=== PATIENT | female | born 1995 | race Caucasian/White ===

== ENCOUNTER 2022-03-30 08:19 | Emergency (ER) | payer OTHER, SELFPAY ==
[2022-03-30 08:18] VITALS: BP 112/78; PULSE 80; RESP 14; TEMP 36.4; O2SAT 97
--- NOTE | 2022-03-30 08:20 | ED.PSYCH ---
HPI - Psych General Chief Complaint: Psychiatric Symptoms Stated Complaint: SI Source: RN notes reviewed History of Present Illness HPI Narrative: Patient presents emergency room from home for suicidal ideation. She states she has been under some increased stress recently. She states that she was frustrated this morning and been texting with her mother texted her mother that she is going to kill herself. She states that she did send the text but she states that she had no intent to act on it she just texted out of frustration states that time she just laid down and then she had been awoken by the police to come to her house after her mother called the police she currently denies any homicidal or suicidal ideation she states she has 2 children at home and would not want to hurt her self but she wants to be there for her children she denies any recent illness has no other complaints at this time Related Data Allergies Allergy/AdvReac Type Severity Reaction Status Date / Time No Known Allergies Allergy Verified 03/30/22 08:24 Review of Systems Review of Systems: Gen.: Denies fevers or chills Eyes: Denies eye pain or visual change ENT: Denies congestion Respiratory: Denies shortness of breath or cough CV: Denies chest pain GI: Denies abdominal pain nausea, emesis or diarrhea Musculoskeletal: Denies back pain or muscle pain Neuro: Denies numbness, tingling, weakness or focal weakness Skin: Denies rash Psych: See HPI Except as documented, all other systems reviewed and negative [facility] Past Medical History Medical History (Updated 03/30/22 @ 11:10 by Aniket Lucia DO) Patient denies significant medical history Social History Social History (Updated 03/30/22 @ 08:22 by Aniket Lucia DO) Smoking status: Never smoker Substance use type: marijuana Exam Narrative: APPEARANCE: No acute distress, nontoxic, resting in bed EYES: EOMI HEENT: Normocephalic, atraumatic, OMM RESPIRATORY: No respiratory distress Clear to auscultation bilaterally with no rhonchi wheezing or rales. CARDIOVASCULAR: Regular rate and rhythm without murmurs rubs or gallops. ABDOMINAL: Soft, nontender, nondistended, no rebound or guarding MUSCULOSKELETAl: Moves all extremities. No clubbing, cyanosis or edema. NEURO: Awake and alert. Following commands, speech normal, no focal deficits SKIN:: Warm, dry. No rashes lesions or abrasions PSYCHIATRIC: Normal affect/mood, Psych: Denies suicidal or homicidal ideation Course Course Emergency Course: Patient evaluated by crisis collections director's continues any suicidal homicidal ideation. Safety plan is filled out Crisis evaluators feel patient may be discharged Patient reevaluated myself denies any suicidal homicidal ideation Discussed with patient results of workup and diagnosis. Discussed need for follow-up with primary care, proper use of medication, and reasons to return to the emergency department. Patient understands and agrees to current treatment plan Vital Signs Vital signs: Vital Signs Temperature 97.6 F 03/30/22 08:18 Pulse Rate 80 03/30/22 08:18 Respiratory Rate 14 03/30/22 08:18 Blood Pressure 112/78 03/30/22 08:18 Pulse Oximetry 97 03/30/22 08:18 Oxygen Delivery Room Air 03/30/22 08:18 Temperature 97.6 F 03/30/22 08:18 Pulse Rate 80 03/30/22 08:18 Respiratory Rate 14 03/30/22 08:18 Blood Pressure 112/78 03/30/22 08:18 Pulse Oximetry 97 03/30/22 08:18 Oxygen Delivery Room Air 03/30/22 08:18 MDM - Psych Lab Data Result diagrams: 03/30/22 08:31 03/30/22 08:30 Labs: Lab Results 03/30/22 03/30/22 03/30/22 Range/Units 08:30 08:30 08:30 WBC (4.5-10.0) K/mm3 RBC (4.2-5.4) M/mm3 Hgb (12.0-15.0) g/dL Hct (37.0-47.0) % MCV (80-100) fl MCH (26-34) pg MCHC (32-36) g/dl RDW (11.5-14.5) % Plt Count (150-375) k/mm3 MPV (7.4-10.4) fl Immature Gran % (Auto)
[2022-03-30 08:41] LABS: Basophils Percent Auto 0.3 % (0.2-1.2); Eosinophils Absolute Auto 0.2 K/mm3 (0-0.3); Eosinophils Percent Auto 1.3 % (0-4.4); Hemoglobin 13.9 g/dL (12.0-15.0); Immature Granulocyte Absolute 0.02 K/mm3 (0.00-0.031); Immature Granulocyte Percent A 0.2 % (0-0.5); Lymphocytes Absolute Auto 1.29 K/mm3 (0.9-3.2); Lymphocytes Percent Auto 11.3 % (18.3-44.2); Mean Corpuscular HGB Conc 33.1 g/dl (32-36); Mean Corpuscular Volume 90.5 fl (80-100); Mean Platelet Volume 8.9 fl (7.4-10.4); Monocytes Absolute Auto 0.6 K/mm3 (0.1-0.6); Monocytes Percent Auto 5.4 % (2.6-8.5); Neutrophils Absolute Auto 9.4 K/mm3 (1.3-6.7); Neutrophils Percent Auto 81.5 % (45.5-73.1); Platelet Count Result 294 k/mm3 (150-375); Red Blood Count 4.64 M/mm3 (4.2-5.4); Red Cell Distribution Width 13.2 % (11.5-14.5); White Blood Count 11.5 K/mm3 (4.5-10.0)
[2022-03-30 08:46] LABS: Appearance Urine Slightly Cloudy (Clear); Bilirubin Urine 1+ (Negative); Color Urine Yellow (Yellow); Glucose Urine UA Negative (Negative); Ketones Urine Negative (Negative); Leukocyte Esterase Ur 1+ LEU/UL (Negative); Nitrate Urine Negative (Negative); Protein Urine 1+ mg/dL (Negative); Specific Grav Ur >= 1.030 (1.001-1.035); Urobilinogen Urine 0.2 mg/dL (<2.0)
[2022-03-30 08:53] LABS: Alanine Aminotransferase 14 U/L (6-35); Albumin Level 4.7 g/dL (3.5-5.1); Alkaline Phosphatase 92 U/L (38-126); Anion Gap 12 mmol/L (8-16); Aspartate Amino Transferase 25 U/L (14-36); Bacteria Urine Trace /hpf; Bilirubin,Total 0.5 mg/dL (0.2-1.3); Blood Urea Nitrogen 10 mg/dL (7-17); Calcium 8.8 mg/dL (8.4-10.2); Calcium Oxalate Crystals Urine Present /hpf; Carbon Dioxide 24 mmol/L (22-30); Chloride 105 mmol/L (98-107); Estimated CRCL calculation 115 ml/min; Estimated Glomerular Filt Rate > 60; Glucose 103 mg/dL (65-110); Mucus Urine Few /lpf; Potassium 3.9 mmol/L (3.4-5.0); RBC Urine 21-50 /hpf (0-2); Sodium 141 mmol/L (137-145); Squamous Epithelial Cell Urine Many /hpf (Few); WBC Urine 51-75 /hpf
[2022-03-30 08:54] LABS: Add Urine Microscopic? YES; Blood Urine Trace-Intact (Negative)
[2022-03-30 08:58] LABS: Ethanol < 10 mg/dL (<10)
[2022-03-30 09:16] LABS: Amphetamine Screen Urine Negative (Negative); Barbiturate Screen Urine Negative (Negative); Benzodiazepines Screen Urine Positive (Negative); Cannabinoid Screen Urine Positive (Negative); Cocaine Screen Urine Negative (Negative); Methadone Screen Urine Negative (Negative); Opiate Screen Urine Negative (Negative); Phencyclidine Screen Urine Negative (Negative)
[2022-03-30 09:24] LABS: Thyroid Stimulating Hormone 0.335 uIU/mL (0.465-4.680)
[2022-03-30] MEDS: NITROFURANTOIN MONOHYD MACROCR 100 MG CAP PO (11:18)
== END 2022-03-30 11:23 | disposition home or self-care (01) ==
PROVIDERS: Emergency Provider Emergency Medicine; PCP Family Medicine
DX: F32.9 Major depressive disorder, single episode, unspecified (principal); N39.0 Urinary tract infection, site not specified
CPT/HCPCS: 36415; 80053; 80307; 81001; 81025; 84443; 85025; 87086; 87088; 96365; 99284; A9270; J2543